=== PATIENT | male | born 1960 | race Caucasian/White ===

== ENCOUNTER → 2021-08-13 | Outpatient (CLI) | payer BC | LOC: KOH-I 13:00 → EXRD 13:30 | DX: R17 Unspecified jaundice (principal); K82.8 Other specified diseases of gallbladder | CPT/HCPCS: 76700 ==

== ENCOUNTER → 2021-10-18 | Outpatient (CLI) | payer BC | LOC: OPSV 12:52 | DX: K86.89 Other specified diseases of pancreas (principal); Z20.822 Contact with and (suspected) exposure to COVID-19 | CPT/HCPCS: U0003 ==